=== PATIENT | male | born 2000 | race American Indian/Alaskan Native ===

== ENCOUNTER 2019-09-20 22:33 | Emergency (ER) | payer MEDICAID ==
--- NOTE | 2019-09-20 22:51 | Emergency Department Report ---
<RHYS MORILLO - Last Filed: 09/24/19 16:08> ED Psych HPI - General Stated Complaint: MH EVALUATION Time Seen by Provider: 09/20/19 22:38 Source: EMS - History of Present Illness Initial Comments: Patient is 19 years old male autistic. Patient brought to the emergency room via EMS from home after patient became very agitated and combative with his family and threatened to blow up the house and chop people head. EMS stated that patient mother informed him that patient stop taking his medication for the last 7 days. Patient obviously has been assessed by psych personal and patient put on a 1013 prior to coming to the ER. She indicated in her notes that patient is paranoia, responding to internal stimuli with auditory and visual hallucination patient has command hallucination, dissociation. Out of touch with reality and delusional. Patient received Haldol, Versed and Benadryl by EMS for chemical restraint. Upon arrival to the ER patient is calm and answering question appropriately. Patient denied any homicidal or suicidal ideation. He also denied any visual or auditory hallucination. However given the history reported by EMS and the information in the 1013, I decided to con tinue the 1013 until patient assessed by psychiatric team tomorrow. MD Complaint: suicidal ideation, altered mental status Associated Psychiatric Symptoms: suicidal ideation, homicidal ideation, racing thoughts, auditory hallucinations, visual hallucinations History of same: Yes Treatments Prior to Arrival: placed on mental he, chemical restraints - Related Data Home Medications Medication Instructions Recorded Confirmed Last Taken Atomoxetine HCl 60 mg PO HS 09/21/19 09/22/19 2 Weeks Ago ~09/07/19 LORazepam [Lorazepam] 0.5 mg PO BID 09/21/19 09/21/19 2 Weeks Ago ~09/07/19 cloZAPine 100 mg PO HS 09/21/19 09/22/19 2 Weeks Ago ~09/07/19 haloperidoL [Haloperidol] 5 mg PO BID 09/21/19 09/21/19 2 Weeks Ago ~09/07/19 Allergies Allergy/AdvReac Type Severity Reaction Status Date / Time No Known Allergies Allergy Unverified 09/21/19 20:15 ED Review of Systems Comment: All other systems reviewed and negative Constitutional: denies: chills, fever Respiratory: denies: cough, shortness of breath Cardiovascular: denies: chest pain, palpitations Gastrointestinal: denies: abdominal pain, nausea, vomiting Musculoskeletal: denies: back pain Neurological: denies: headache, weakness Psychiatric: auditory hallucinations, visual hallucinations, homicidal thoughts, suicidal thoughts ED Past Medical Hx - Medications Home Medications: Home Medications Medication Instructions Recorded Confirmed Last Taken Type Atomoxetine HCl 60 mg PO HS 09/21/19 09/22/19 2 Weeks Ago History ~09/07/19 LORazepam [Lorazepam] 0.5 mg PO BID 09/21/19 09/21/19 2 Weeks Ago History ~09/07/19 cloZAPine 100 mg PO HS 09/21/19 09/22/19 2 Weeks Ago History ~09/07/19 haloperidoL [Haloperidol] 5 mg PO BID 09/21/19 09/21/19 2 Weeks Ago History ~09/07/19 ED Physical Exam - General General appearance: alert, in no apparent distress - Head Head exam: Present: atraumatic, normocephalic, normal inspection - Eye Eye exam: Present: normal appearance, PERRL - ENT ENT exam: Present: normal exam, normal orophraynx, mucous membranes moist - Neck Neck exam: Present: normal inspection, full ROM. Absent: tenderness, meningismus, lymphadenopathy, thyromegaly - Respiratory Respiratory exam: Present: normal lung sounds bilaterally - Cardiovascular Cardiovascular Exam: Present: regular rate, normal rhythm, normal heart sounds - GI/Abdominal GI/Abdominal exam: Present: soft, normal bowel sounds. Absent: distended, tenderness, guarding, rebound, rigid, organomegaly, mass, bruit, pulsatile mass, hernia - Extremities Exam Extremities exam: Present: normal inspection, full ROM, normal capillary refill. Absent: pedal edema, calf tenderness - Back Exam Back exam: Present: normal inspection, full ROM. Absent: CVA tenderness (R), CVA tenderness (L) - Neurological Exam Neurological exam: Present: alert, oriented X3, CN II-XII intact. Absent: motor sensory deficit - Psychiatric Psychiatric exam: Present: normal mood. Absent: depressed, agitated, anxious, flat affect, manic, homicidal ideation, suicidal ideation - Skin Skin exam: Present: warm, intact, normal color ED Medical Decision Making - Lab Data Result diagrams: 09/20/19 22:56 09/20/19 22:56 - Medical Decision Making Patient is 19 years old male autistic. Patient brought to the emergency room via EMS from home after patient became very agitated and combative with his family and threatened to blow up the house and chop people head. EMS stated that patient mother informed him that patient stop taking his medication for the last 7 days. Patient obviously has been assessed by psych personal and patient put on a 1013 prior to coming to the ER. She indicated in her notes that patient is paranoia, responding to internal stimuli with auditory and visual hallucination patient has command hallucination, dissociation. Out of touch with reality and delusional. Patient received Haldol, Versed and Benadryl by EMS for chemical restraint. Upon arrival to the ER patient is calm and answering question appropriately. Patient denied any homicidal or suicidal ideation. He also denied any visual or auditory hallucination. However given the history reported by EMS and the information in the 1013, I decided to continue the 1013 until patient assessed by psychiatric team tomorrow. Patient is medically clear. Patient evaluated by our psychiatric team. Patient received a haloperidol 50 mg IM. Psychiatric team advised patient to be discharged home and to follow-up as an outpatient. I personally examined Mr. Redding again prior to discharge. Patient is calm and cooperative and in no acute distress. He denies any suicidal or homicidal ideation. He also denied any visual or auditory hallucination. There is a concern that he is refusing to take his medication by his mother however I talked to psychiatric team and he said he received haloperidol 50 mg and that would last him for a week. Patient is medically and psychiatrically stable for discharge. ED Disposition Clinical Impression: Autism Disposition: DC-01 TO HOME OR SELFCARE Is pt being admited?: No Condition: Stable Instructions: Autism (ED), Suicide Prevention for Adults (ED) Additional Instructions: [facility]: [address] [place] [address] [phone] Maxime Villafana MD [address] [place], [place] [facility]: [address] [place] [address] [phone] [facility]: [address] [facility]: [address] [place] [address] [address] [place] [address] [phone] [facility] [place] Crisis Line: Suicide Prevention Line: Emergency: 911 <TAMIE CORCORAN - Last Filed: 09/27/19 13:55> ED Review of Systems ROS: Stated complaint: MH EVALUATION Other details as noted in HPI ED Course Vital Signs 09/20/19 09/20/19 09/20/19 22:45 23:36 23:45 Temperature 98.0 F Pulse Rate 67 Respiratory 18 Rate Blood Pressure 138/84 131/82 Blood Pressure [Right] O2 Sat by Pulse 98 99 99 Oximetry 09/21/19 09/21/19 09/21/19 00:00 00:15 00:30 Temperature Pulse Rate Respiratory Rate Blood Pressure 119/79 121/84 126/77 Blood Pressure [Right] O2 Sat by Pulse 97 99 99 Oximetry 09/21/19 09/21/19 09/21/19 00:46 01:00 01:16 Temperature Pulse Rate Respiratory Rate Blood Pressure 125/73 125/68 125/68 Blood Pressure [Right] O2 Sat by Pulse 98 98 99 Oximetry 09/21/19 09/21/19 09/21/19 01:30 01:46 02:00 Temperature 98.4 F Pulse Rate 75 Respiratory 18 Rate Blood Pressure 125/68 125/68 125/68 Blood Pressure 140/88 [Right] O2 Sat by Pulse 97 97 99 Oximetry 09/21/19 09/21/19 09/21/19 02:15 02:30 02:45 Temperature Pulse Rate Respiratory Rate Blood Pressure 126/73 118/69 129/82 Blood Pressure [Right] O2 Sat by Pulse 97 98 98 Oximetry 09/21/19 09/21/19 09/21/19 03:00 03:15 03:30 Temperature Pulse Rate Respiratory Rate Blood Pressure 134/87 125/78 116/71 Blood Pressure [Right] O2 Sat by Pulse 99 98 96 Oximetry 09/21/19 09/21/19 09/21/19 03:45 04:00 04:15 Temperature Pulse Rate Respiratory Rate Blood Pressure 135/61 127/83 114/72 Blood Pressure [Right] O2 Sat by Pulse 95 100 95 Oximetry 09/21/19 09/21/19 09/21/19 04:30 04:45 05:00 Temperature Pulse Rate Respiratory Rate Blood Pressure 127/69 118/74 134/66 Blood Pressure [Right] O2 Sat by Pulse 98 98 98 Oximetry 09/21/19 09/21/19 09/21/19 05:15 05:30 05:45 Temperature Pulse Rate Respiratory Rate Blood Pressure 120/69 121/73 129/84 Blood Pressure [Right] O2 Sat by Pulse 98 96 97 Oximetry 09/21/19 09/21/19 09/21/19 06:00 06:15 06:30 Temperature Pulse Rate Respiratory Rate Blood Pressure 125/73 123/86 120/62 Blood Pressure [Right] O2 Sat by Pulse 99 99 96 Oximetry 09/21/19 09/21/19 09/21/19 06:45 07:00 07:15 Temperature Pulse Rate Respiratory Rate Blood Pressure 126/76 122/77 132/81 Blood Pressure [Right] O2 Sat by Pulse 98 99 98 Oximetry 09/21/19 09/21/19 09/21/19 07:30 07:46 17:30 Temperature Pulse Rate Respiratory 18 Rate Blood Pressure 119/83 119/83 Blood Pressure [Right] O2 Sat by Pulse 99 99 Oximetry 09/21/19 09/22/19 09/23/19 20:47 20:14 08:07 Temperature 98.3 F 98.2 F Pulse Rate 90 71 Respiratory 18 18 18 Rate Blood Pressure Blood Pressure 177/88 137/84 [Right] O2 Sat by Pulse 100 99 98 Oximetry 09/23/19 09/23/19 09/23/19 17:20 19:12 22:07 Temperature 98.3 F 98.4 F 98.3 F Pulse Rate 76 66 74 Respiratory 16 20 16 Rate Blood Pressure Blood Pressure 149/94 138/94 136/92 [Right] O2 Sat by Pulse 100 99 99 Oximetry 09/24/19 09/24/19 09/24/19 01:19 14:28 21:15 Temperature 98.0 F 98.1 F 99.1 F Pulse Rate 70 96 H 62 Respiratory 18 20 18 Rate Blood Pressure Blood Pressure 130/80 144/89 153/81 [Right] O2 Sat by Pulse 97 99 Oximetry 09/25/19 09/25/19 09/25/19 04:49 08:21 20:09 Temperature 98.6 F 98.1 F 99.1 F Pulse Rate 64 57 L 60 Respiratory 18 16 18 Rate Blood Pressure Blood Pressure 129/82 116/64 129/68 [Right] O2 Sat by Pulse 100 98 100 Oximetry 09/25/19 09/26/19 09/26/19 22:51 01:55 07:58 Temperature 98.1 F 98.9 F Pulse Rate 62 67 Respiratory 18 18 20 Rate Blood Pressure Blood Pressure 131/70 137/81 [Right] O2 Sat by Pulse 99 100 Oximetry 09/26/19 09/27/19 09/27/19 20:05 02:09 08:25 Temperature 98.8 F 99.2 F 99.5 F Pulse Rate 98 H 85 85 Respiratory 18 18 18 Rate Blood Pressure Blood Pressure 139/77 142/94 157/95 [Right] O2 Sat by Pulse 100 98 100 Oximetry ED Medical Decision Making - Lab Data Result diagrams: 09/20/19 22:56 09/20/19 22:56 - Medical Decision Making After 7-day observation in the emergency department, our psychiatric team has cleared Mr. Redding for discharge. He is discharged home at this time. Critical care attestation.: If time is entered above; I have spent that time in minutes in the direct care of this critically ill patient, excluding procedure time. ED Disposition Is pt being admited?: No Does the pt Need Aspirin: No
[2019-09-20 23:07] LABS: Basophils # (Auto) 0.1 K/mm3 (0.0-0.1); Basophils % (Auto) 0.9 % (0.0-1.8); Eosinophils # (Auto) 0.1 K/mm3 (0.0-0.4); Eosinophils % (Auto) 1.6 % (0.0-4.3); Hematocrit 45.7 % (35.5-45.6); Hemoglobin 15.2 gm/dl (11.8-15.2); Lymphocytes # (Auto) 2.4 K/mm3 (1.2-5.4); Mean Corpuscular HGB Conc 33 % (32-34); Mean Corpuscular Volume 87 fl (84-94); Monocytes # (Auto) 0.9 K/mm3 (0.0-0.8); Monocytes % (Auto) 13.2 % (0.0-7.3); Platelet Count 322 K/mm3 (140-440); Red Blood Count 5.25 M/mm3 (3.65-5.03); Red Cell Distribution Width 14.9 % (13.2-15.2)
[2019-09-20 23:25] LABS: BUN/Creatinine Ratio 19; Blood Urea Nitrogen 21 mg/dL (9-20); Calcium 9.5 mg/dL (8.4-10.2); Hemolysis Index 16
[2019-09-21] MEDS ORDERED: ZIPRASIDONE MESYLATE 20 MG VIAL IM ONE (20:25)
[2019-09-21] MEDS ORDERED: WATER FOR INJ Sterile (PF) 10 ML ONE (20:45)
--- NOTE | 2019-09-22 13:55 | Consultation ---
History of Present Illness - Reason for Consult Consult date: 09/22/19 Reason for consult: MHE Requesting physician: RHYS MORILLO - Chief Complaint Chief complaint: Violent - History of Present Psychiatric Illness ED Provider: Patient is 19 years old male autistic. Patient brought to the emergency room via EMS from home after patient became very agitated and combative with his family and threatened to blow up the house and chop people head. EMS stated that patient mother informed him that patient stop taking his medication for the last 7 days. Patient obviously has been assessed by psych personal and patient put on a 1013 prior to coming to the ER. She indicated in her notes that patient is paranoia, responding to internal stimuli with auditory and visual hallucination patient has command hallucination, dissociation. Out of touch with reality and delusional. Patient received Haldol, Versed and Benadryl by EMS for chemical restraint. Upon arrival to the ER patient is calm and answering question appropriately. Patient denied any homicidal or suicidal ideation. He also denied any visual or auditory hallucination. However given the history reported by EMS and the information in the 1013, I decided to continue the 1013 until patient assessed by psychiatric team tomorrow. Per MHA: Pt is a 19 yo AA male presenting to ED for MHE, as pt reported HI, agitation. During ax, pt presented with cooperative behaviors, agitated mood and imcongruent affect. Pt reports onset of HI on 09/20/19 after a verbal altercation in the home setting. According to collateral, pt has HI towards mother and aunt, pt is agitated and pacing in the ED. Pt identified trigger of verbal altercation with mother and aunt. According to triage, pt was physcially aggressive in the home. Pt is cooperative in the ED setting. Pt denies hx of attempts. Pt denies SI. Pt denies A/V H. Pt has hx of Autism. PSYCH HPI Patient is a 19 year old Female with History of Autism who currently resides with parents brought to the ER for Mental Health Evaluation. Patient states he has been diagnosed with schizophrenia before but he does not have it anymore because he had used his cyborg with half human and half cyborg brains to kill it. Patient also states he would like to kill his family members, because his mum and aunt have tried to kill other family members so he just want to kill them all. Patient then walked away, smiling and pointing towards the corner. Interviewed discontinued. PAST PSYCHIATRIC HISTORY Diagnoses: Autism Suicide attempts or Self-harm behavior: n/a Prior psychiatric hospitalizations: Yes Substance Abuse history: n/a Previous psychiatric medications tried: unknown Outpatient treatment: Yes PAST MEDICAL HISTORY: none reported Family Psychiatric History: None reported or documented SOCIAL HISTORY Marital Status: Living Arrangements: [facility] Employment Status: Retired Access to guns/weapons: none reported Education: n/a History of Abuse: none reported Legal History:none reported REVIEW OF SYSTEMS Constitutional: Negative for weight loss ENT: Negative for stridor Respiratory: Negative for cough or hemoptysis All other systems reviewed and are negative MENTAL STATUS EXAMINATION General Appearance and Behavior: Age appropriate, good hygiene, wearing appropriate clothes, Poor eye contact, uncooperative with questioning and irritable Cooperation: Withdrawn and Isolated Psychomotor Behavior: Psychomotor agitation Mood: "unknown" Affect and affective range: Dysthymic, Thought Process: Illogical, blocked, Fragmented and Loose associations Thought Content: Illogical, and Paranoia, hallucination Speech: Normal to low, soft volume Suicidal Ideation: n/a Homicidal Ideation: n/a Impulse Control: Impaired Insight and Judgment: Limited insight and judgment, Impaired Memory: N/a Attention: Divided attention impaired Orientation: Alert, oriented, anxious RECOMMENDATIONS MEDICATIONS: We dont have clozapine and Atomexitine. Will restart 2 other meds Risks, benefits and alternatives of medications discussed with the patient, questions answered and consent obtained from patient. PSYCHOTHERAPY: Supportive psychotherapy provided MEDICAL: Per primary team DELIRIUM PRECAUTIONS: Please re-orient patient frequently, keep lights on during the day, and minimize benzodiazepines and opiates as these medications could worsen patient's confusion. AVIONICS SYSTEMS ENGINEER: Per medical team DISPOSITION: Recommends indication for acute inpatient psychiatric hospitalization for Behav Health Therapy at appropriate facility given hx of Autism LEGAL STATUS: 1013 FOLLOW-UP: Will follow Thank you for the consult. Please contact with any questions and/or concerns. Medications and Allergies Allergies Allergy/AdvReac Type Severity Reaction Status Date / Time No Known Allergies Allergy Unverified 09/21/19 20:15 Home Medications Medication Instructions Recorded Confirmed Last Taken Type Atomoxetine HCl 60 mg PO DAILY 09/21/19 09/21/19 2 Weeks Ago History ~09/07/19 LORazepam [Lorazepam] 0.5 mg PO BID 09/21/19 09/21/19 2 Weeks Ago History ~09/07/19 cloZAPine 100 mg PO DAILY 09/21/19 09/21/19 2 Weeks Ago History ~09/07/19 haloperidoL [Haloperidol] 5 mg PO BID 09/21/19 09/21/19 2 Weeks Ago History ~09/07/19 Mental Status Exam - Vital signs Last Vital Signs Temp 98.4 F 09/21/19 02:00 Pulse 75 09/21/19 02:00 Resp 18 09/21/19 20:47 BP 119/83 09/21/19 07:46 Pulse Ox 100 09/21/19 20:47 Results Result Diagrams: 09/20/19 22:56 09/20/19 22:56 All other labs normal.
[2019-09-22] MEDS ORDERED: HALOPERIDOL 5 MG TAB PO SCH (14:00)
[2019-09-22] MEDS ORDERED: LORazepam 1 MG TAB PO SCH (15:00)
[2019-09-22] MEDS ORDERED: HALOPERIDOL 2 MG TAB PO SCH (15:00)
[2019-09-22] MEDS: LORazepam 0.5 MG TAB PO SCH ×3 (18:21→22:15)
[2019-09-22] MEDS: HALOPERIDOL 5 MG TAB PO SCH (19:35)
[2019-09-22] MEDS: ATOMOXETINE HCL PO SCH (22:15)
[2019-09-22] MEDS: CLOZAPINE 100 MG PO SCH (22:16)
[2019-09-23] MEDS ORDERED: ZIPRASIDONE MESYLATE 20 MG VIAL IM ONE ×2 (01:23→01:25)
[2019-09-23] MEDS: HALOPERIDOL 5 MG TAB PO SCH ×2 (12:47→22:18)
[2019-09-23] MEDS: LORazepam 0.5 MG TAB PO SCH ×2 (12:47→22:17)
--- NOTE | 2019-09-23 14:22 | Progress Note ---
Subjective - Reason for Consult Consult date: 09/23/19 Reason for consult: MHE Requesting physician: RHYS MORILLO - Chief Complaint Chief complaint: PSYCH PROGRESS Patient seen in room this AM, unbothered by my presence as he rambles and kept talking to self. 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 He states his good, and does not want his medications and gives no reason to why. Asked patient what he thinks about his family today, pt provided no response. REVIEW OF SYSTEMS Constitutional: Negative for weight loss ENT: Negative for stridor Respiratory: Negative for cough or hemoptysis All other systems reviewed and are negative MENTAL STATUS EXAMINATION General Appearance and Behavior: Age appropriate, good hygiene, wearing appropriate clothes, Poor eye contact, uncooperative with questioning and irritable Cooperation: Withdrawn and Isolated Psychomotor Behavior: Psychomotor agitation Mood: "unknown" Affect and affective range: Dysthymic, Thought Process: Illogical, blocked, Fragmented and Loose associations Thought Content: Illogical, and Paranoia, hallucination Speech: Normal to low, soft volume Suicidal Ideation: n/a Homicidal Ideation: n/a Impulse Control: Impaired Insight and Judgment: Limited insight and judgment, Impaired Memory: N/a Attention: Divided attention impaired Orientation: Alert, oriented, anxious RECOMMENDATIONS Patient has history of Autism, currently on clozapine (last line medication for schizophrenia), his baseline autistic disorder is behavioral and hence cant be medically managed until patient is lucid. We will continue to observe and provide safe environment until intrusive thoughts and ideas are no longer present if patient is not accepted by an appropriate facility. MEDICATIONS: [place] [facility] [place] non compliant, not wanting to take meds. Risks, benefits and alternatives of medications discussed with the patient, questions answered and consent obtained from patient. PSYCHOTHERAPY: Supportive psychotherapy provided MEDICAL: Per primary team DELIRIUM PRECAUTIONS: Please re-orient patient frequently, keep lights on during the day, and minimize benzodiazepines and opiates as these medications could worsen patient's confusion. ROOF TRUSS MACHINE TENDER: Per medical team DISPOSITION: Recommends indication for acute inpatient psychiatric hospitalization for Behav Health Therapy at appropriate facility given hx of Autism LEGAL STATUS: 1013 FOLLOW-UP: Will follow Thank you for the consult. Please contact with any questions and/or concerns Mental Status Exam - Vital signs Last Vital Signs Temp 98.2 F 09/23/19 08:07 Pulse 71 09/23/19 08:07 Resp 18 09/23/19 08:07 BP 137/84 09/23/19 08:07 Pulse Ox 98 09/23/19 08:07
[2019-09-23] MEDS ORDERED: BENZTROPINE 2 MG/2 ML INJ IM STA (18:19)
[2019-09-23] MEDS ORDERED: HALOPERIDOL DECANOATE 100 MG/1 ML INJ IM SCH (20:00)
[2019-09-23] MEDS: CLOZAPINE 100 MG PO SCH (22:18)
[2019-09-23] MEDS: ATOMOXETINE HCL PO SCH (22:18)
[2019-09-24] MEDS: LORazepam 0.5 MG TAB PO SCH ×2 (11:08→22:08)
[2019-09-24] MEDS: HALOPERIDOL 5 MG TAB PO SCH ×2 (11:09→22:08)
--- NOTE | 2019-09-24 12:36 | Progress Note ---
Subjective - Reason for Consult Consult date: 09/24/19 Reason for consult: MHE Requesting physician: RHYS MORILLO - Chief Complaint Chief complaint: PSYCH PROGRESS Patient is mute selectively. I spoke with mum yesterday, she requested patient to be started on Haldol, says he does better on it. She requested IM. Meds started yesterday. Mum contacted to strip picker patient today. MENTAL STATUS EXAMINATION General Appearance and Behavior: Age appropriate, good hygiene, wearing appropriate clothes, Poor eye contact, uncooperative with questioning Cooperation: Withdrawn and Isolated Psychomotor Behavior: Psychomotor agitation Mood: unknown Affect and affective range: Flat Thought Process: unknown Thought Content: preservative Speech: Normal to low, soft volume Suicidal Ideation: n/a Homicidal Ideation: n/a Impulse Control: Impaired Insight and Judgment: Limited insight and judgment, Impaired Memory: N/a Attention: Divided attention impaired Orientation: Alert, oriented, anxious RECOMMENDATIONS Patient has history of Autism, currently on clozapine (last line medication for schizophrenia), his baseline autistic disorder is behavioral and hence cant be medically managed until patient is lucid. We will continue to observe and provide safe environment until intrusive thoughts and ideas are no longer present if patient is not accepted by an appropriate facility. MEDICATIONS: Continue home meds Risks, benefits and alternatives of medications discussed with the patient, questions answered and consent obtained from patient. PSYCHOTHERAPY: Supportive psychotherapy provided MEDICAL: Per primary team DELIRIUM PRECAUTIONS: Please re-orient patient frequently, keep lights on during the day, and minimize benzodiazepines and opiates as these medications could worsen patient's confusion. PELLET MACHINE OPERATOR: Per medical team DISPOSITION: No acute inpatient psychiatric hospitalization for Behav Health Therapy at appropriate facility given hx of Autism LEGAL STATUS: 1013 rescinded FOLLOW-UP: Will sign off. Thank you for the consult. Please contact with any questions and/or concerns Mental Status Exam - Vital signs Last Vital Signs Temp 98.0 F 09/24/19 01:19 Pulse 70 09/24/19 01:19 Resp 18 09/24/19 01:19 BP 130/80 09/24/19 01:19 Pulse Ox 99 09/23/19 22:07
[2019-09-24] MEDS: CLOZAPINE 100 MG PO SCH (22:08)
[2019-09-24] MEDS: ATOMOXETINE HCL PO SCH (22:08)
--- NOTE | 2019-09-25 13:06 | Progress Note ---
Subjective - Reason for Consult Consult date: 09/25/19 Reason for consult: MHE Requesting physician: RHYS MORILLO ( ) - Chief Complaint Chief complaint: PSYCH PROGRESS Patient is mute selectively. I spoke with mum yesterday, she requested patient to be started on Haldol, says he does better on it. She requested IM. Meds started yesterday. Mum contacted to pick up operator patient today. MENTAL STATUS EXAMINATION General Appearance and Behavior: Age appropriate, good hygiene, wearing appropriate clothes, Poor eye contact, uncooperative with questioning Cooperation: Withdrawn and Isolated Psychomotor Behavior: Psychomotor agitation Mood: Im good Affect and affective range: congruent with mood Thought Process: Thought Content: preservative Speech: Normal to low, soft volume Suicidal Ideation: n/a Homicidal Ideation: n/a Impulse Control: Impaired Insight and Judgment: Limited insight and judgment, Impaired Memory: N/a Attention: Divided attention impaired Orientation: Alert, oriented, anxious RECOMMENDATIONS Patient has history of Autism, currently on clozapine (last line medication for schizophrenia), his baseline autistic disorder is behavioral and hence cant be medically managed until patient is lucid. Patient started on IM haldol dekanoate, on board for placement MEDICATIONS: Continue home meds Risks, benefits and alternatives of medications discussed with the patient, questions answered and consent obtained from patient. PSYCHOTHERAPY: Supportive psychotherapy provided MEDICAL: Per primary team DELIRIUM PRECAUTIONS: Please re-orient patient frequently, keep lights on during the day, and minimize benzodiazepines and opiates as these medications could worsen patient's confusion. MAINSPRING STRIP INSPECTOR: Per medical team DISPOSITION: DD recommends inpatient LEGAL STATUS: Recommends ED HOLD FOLLOW-UP: Will sign off. No further interventional can be provided at our facility. ED hold until transfer to a [facility]. Thank you for the consult. Please contact with any questions and/or concerns Mental Status Exam - Vital signs Last Vital Signs Temp 98.1 F 09/25/19 08:21 Pulse 57 L 09/25/19 08:21 Resp 16 09/25/19 08:21 BP 116/64 09/25/19 08:21 Pulse Ox 98 09/25/19 08:21
[2019-09-25] MEDS: HALOPERIDOL 5 MG TAB PO SCH ×2 (14:04→22:00)
[2019-09-25] MEDS: LORazepam 0.5 MG TAB PO SCH ×2 (14:10→22:00)
[2019-09-25] MEDS: CLOZAPINE 100 MG PO SCH (22:00)
[2019-09-25] MEDS: ATOMOXETINE HCL PO SCH (22:00)
--- NOTE | 2019-09-26 12:17 | Progress Note ---
Subjective - Reason for Consult Consult date: 09/26/19 Reason for consult: violent, autism - Chief Complaint Chief complaint: The patient's medical record was reviewed and the patient's progress was discussed with the nursing staff. The nurse caring for the patient states the patient has been calm and cooperative. The sitter says the patient doesn't talk when he chooses not to. During interview with the patient this morning, he is awake. He was calm. He smiles at times. He makes good eye contact. When attempting to speak with the patient he motions with his hand and points at his mouth. I asked the patient, "you're not speaking to day?" He shook his head, "no." When asking the patient about his mood, he did thumbs up. When asking about any hallucinations, the patient, shook his head "no." He also shook his head, "no" when asking about SI/HI. The patient was asked did he feel calm, he did thumbs up. MENTAL STATUS EXAMINATION General Appearance: Dressed appropriate Behavior: Calm. Good eye contact Mood: "thumbs up" Affect: congruent with mood Thought Process: Goal directed Speech: Normal tone and pace Thought Content Suicidal Ideation: Denies Homicidal Ideation: Denies Hallucinations: Denies Delusions: None elicited Insight and Judgment: Limited Memory/Cognition: Limited Assessment Autistic Disorder RECOMMENDATIONS MEDICATIONS: Continue home meds Risks, benefits and alternatives of medications discussed with the patient, questions answered and consent obtained from patient. PSYCHOTHERAPY: Supportive psychotherapy provided MEDICAL: Per primary team DELIRIUM PRECAUTIONS: Please re-orient patient frequently, keep lights on during the day, and minimize benzodiazepines and opiates as these medications could worsen patient's confusion. ROLL BUCKER: Per medical team DISPOSITION: DD recommends inpatient. Inpatient not recommended from psych perspective at this time. The patient may discharge home with mom once medically clear. FOLLOW-UP: Will sign off. No further interventional can be provided at our facility. Thank you for the consult. Please contact with any questions and/or concerns Mental Status Exam - Vital signs Last Vital Signs Temp 98.9 F 09/26/19 07:58 Pulse 67 09/26/19 07:58 Resp 20 09/26/19 07:58 BP 137/81 09/26/19 07:58 Pulse Ox 100 09/26/19 07:58
[2019-09-26] MEDS: HALOPERIDOL 5 MG TAB PO SCH ×2 (12:48→22:04)
[2019-09-26] MEDS: LORazepam 0.5 MG TAB PO SCH ×2 (12:48→22:04)
[2019-09-26] MEDS: CLOZAPINE 100 MG PO SCH (22:04)
[2019-09-26] MEDS: ATOMOXETINE HCL PO SCH (22:04)
[2019-09-27 08:27] VITALS: BP 157/95
[2019-09-27] MEDS: HALOPERIDOL 5 MG TAB PO SCH (10:50)
[2019-09-27] MEDS: LORazepam 0.5 MG TAB PO SCH (10:50)
--- NOTE | 2019-09-27 11:11 | Progress Note ---
Subjective - Reason for Consult Consult date: 09/27/19 Reason for consult: Autism - Chief Complaint Chief complaint: The patient's medical record was reviewed and the patient's progress was discussed with the nursing staff. The nurse note states the patient is comfortably lying in the reclining chair in the room. The patient is alert and awake, calm and cooperative. During interview with the patient this morning, he is awake. He was calm and cooperative. He is speaking today. The patient denies SI/HI. He also denies hallucinations of any kind. The patient says his night went "good" and says he feels "good." The patient was asked why was he upset at home. He replies, "my mom got upset because I didn't take my meds. I don't feel like I need them really." Advised the patient that his medications would help keep him stable so he wouldn't end up back in the hospital. The patient states, "I want to go home." When asking the patient was he going to take his meds, he replied, "yes, I will try." I spoke with the patient's mom, Tg Redding at [phone]. Mom asked me how was Hai this morning. I informed mom of the patient's progress and that the patient mentioned wanting to go home. Mom says that made her feel better because she wants Hai home. She says she was concerned that if Hai didn't want to come home it would be a problems. Mom states she is now comfortable with the patient coming home. She will pick the patient up today. MENTAL STATUS EXAMINATION General Appearance: Dressed appropriate Behavior: Calm. Cooperative. Good eye contact Mood: "good" Affect: congruent with mood Thought Process: Goal directed Speech: Normal tone and pace Thought Content Suicidal Ideation: Denies Homicidal Ideation: Denies Hallucinations: Denies Delusions: None elicited Insight and Judgment: Limited Memory/Cognition: Limited Assessment Autistic Disorder RECOMMENDATIONS Medications: Continue Haldol Injection next Sunday, then Monthly (Mom has set up with outpatient) Risks, benefits and alternatives of medications discussed with the patient, questions answered and consent obtained from patient. PSYCHOTHERAPY: Supportive psychotherapy provided MEDICAL: Per primary team DELIRIUM PRECAUTIONS: Please re-orient patient frequently, keep lights on during the day, and minimize benzodiazepines and opiates as these medications could worsen patient's confusion. HAND CLIPPER: Per medical team DISPOSITION: Inpatient not recommended from psych perspective at this time. The patient may discharge home with mom once medically clear. The patient is to follow up with outpatient psychiatry or primary in 7 to 14 days upon discharge. Explained to the patient's mother that if the patient becomes violent or exhibits any behaviors that she feels are endangering or threatening, that she should seek immediate assistance by calling the crisis hotline, 911, or ER. Mrs. Redding verbalizes understanding of plan. The assess to discuss safety plan further FOLLOW-UP: Will sign off. Thank you for the consult. Please contact with any questions and/or concerns Mental Status Exam - Vital signs Last Vital Signs Temp 99.5 F 09/27/19 08:25 Pulse 85 09/27/19 08:25 Resp 18 09/27/19 08:25 BP 157/95 09/27/19 08:25 Pulse Ox 100 09/27/19 08:25
== END 2019-09-27 14:14 | disposition home or self-care (01) ==
LOC: ED 22:33 → EEVIPCON 22:33 → ED 09-21 14:37
DX: F84.0 Autistic disorder (principal); Z79.899 Other long term (current) drug therapy
CPT/HCPCS: 36415; 80048; 85025; 96372; 99284; J0515; J1631; J3486; 80320; G0480